=== PATIENT | female | born 1985 | race Caucasian/White ===

== ENCOUNTER 2016-08-09 04:41 | Inpatient (IN) | payer MEDICAID ==
[~2016-08-09] VITALS: Ht 160 cm; Wt 48.1 kg
[2016-08-09 07:12] LABS: ANION GAP 13 mmol/L (8-16); CALCIUM, TOTAL 9.1 mg/dL (8.8-10.5); CARBON DIOXIDE 24 mmol/L (22-29); CHLORIDE 100 mmol/L (98-107); GLOMERULAR FILTR. RATE CALC > 60 mL/min (>60); POTASSIUM 3.6 mmol/L (3.5-5.1); SODIUM SERUM 137 mmol/L (136-145); UREA NITROGEN, BLOOD 10 mg/dL (7-18)
[2016-08-09 07:18] LABS: ALANINE AMINOTRANSFERASE 41 U/L (12-78); ALBUMIN 3.8 g/dL (3.4-5.0); ASPARTATE AMINOTRANSFERASE 36 U/L (15-37); BILIRUBIN,TOTAL 0.5 mg/dL (0.1-1.0); TOTAL PROTEIN, SERUM 7.8 g/dL (6.4-8.2)
[2016-08-09 07:20] LABS: BASOPHILS % (AUTO) 0.8 % (0.0-2.0); EOSINOPHILS % (AUTO) 1.7 % (1.0-6.0); HEMATOCRIT 35.1 % (36-46); HEMOGLOBIN 11.3 g/dL (12.0-16.0); LYMPHOCYTES # (AUTO) 2.6 K/uL (1.0-4.8); LYMPHOCYTES % (AUTO) 25.3 % (22.0-44.0); MEAN CORPUSCULAR HEMOGLOBIN 28.8 pg (26.0-34.0); MEAN CORPUSCULAR HGB CONC 32.1 G/dL (31.0-37.0); MEAN CORPUSCULAR VOLUME 89 fL (80-100); MONOCYTES # (AUTO) 0.6 K/uL (0.1-1.0); MONOCYTES % (AUTO) 6.1 % (2.0-9.0); NEUTROPHILS # (AUTO) 6.8 K/uL (1.8-7.7); NEUTROPHILS % (AUTO) 66.1 % (40.0-70.0); PLATELET COUNT (AUTO) 443 K/uL (150-450); RED BLOOD CELL COUNT(AUTO) 3.92 MIL/uL (4.00-5.20); RED CELL DISTRIBUTION WIDTH 15.2 % (11.5-14.5); WHITE BLOOD COUNT (AUTO) 10.3 K/uL (4.5-11.0)
[2016-08-09] MEDS ORDERED: ZOLPIDEM TARTRATE 10 MG TABLET PO PRN (09:15)
[2016-08-09] MEDS ORDERED: HALOPERIDOL 5 MG TABLET PO PRN (09:15)
[2016-08-09 14:44] VITALS: BP 121/82
[2016-08-09] MEDS ORDERED: LOPERAMIDE HCL 2 MG CAPSULE PO PRN (14:45)
[2016-08-09] MEDS ORDERED: ALBUTEROL SULFATE HFA 90 MCG/PUFF 8 GM INHALER IH PRN (14:45)
[2016-08-09] MEDS ORDERED: MAGNESIUM HYDROXIDE SUSPENSION 30 ML UDCUP PO PRN (14:45)
[2016-08-09] MEDS ORDERED: BENZOCAINE/MENTHOL LOZENGE MM PRN (14:45)
[2016-08-09] MEDS ORDERED: MAG HYDROX/AL HYDROX/SIMETH ES 30 ML SUSPENSION UDCUP PO PRN (14:45)
[2016-08-09] MEDS ORDERED: PETROLATUM,WHITE 71 GM JELLY TP PRN (14:45)
[2016-08-09] MEDS ORDERED: BACITRACIN 28.4 GM OINTMENT TP PRN (14:45)
[2016-08-09] MEDS ORDERED: ACETAMINOPHEN 325 MG TABLET PO PRN (14:45)
[2016-08-09] MEDS ORDERED: CloNIDine HCL 0.1 MG TABLET PO PRN (14:45)
[2016-08-09] MEDS ORDERED: ONDANSETRON HCL 4 MG TABLET PO PRN (14:45)
[2016-08-09 16:07] VITALS: BP 110/68
[2016-08-10 00:10] VITALS: BP 123/78
[2016-08-10] MEDS: NICOTINE 21 MG/24 HOUR PATCH TD SCH ×2 (08:16→08:51)
[2016-08-10] MEDS: FLUoxetine HCL 20 MG CAPSULE PO SCH ×2 (12:09→12:12)
[2016-08-10 16:08] VITALS: BP 111/66
[2016-08-10 17:10] VITALS: BP 118/80
[2016-08-10] MEDS: IBUPROFEN 600 MG TABLET PO PRN (17:15)
[2016-08-10] MEDS: LORazepam 2 MG TABLET PO PRN (17:15)
[2016-08-11 05:50] VITALS: BP 110/89
[2016-08-11] MEDS: FERROUS SULFATE 325 MG EC TABLET PO SCH ×3 (06:38→17:00)
[2016-08-11 08:23] VITALS: BP 111/74
[2016-08-11] MEDS: NICOTINE 21 MG/24 HOUR PATCH TD SCH (09:00)
[2016-08-11] MEDS ORDERED: FLUoxetine HCL 20 MG CAPSULE PO ONE (09:30)
[2016-08-11] MEDS: LORazepam 2 MG TABLET PO PRN ×2 (14:06→18:24)
[2016-08-11] MEDS: IBUPROFEN 600 MG TABLET PO PRN ×2 (14:06→18:23)
[2016-08-11 14:09] VITALS: BP 131/96
[2016-08-11 16:00] VITALS: BP 123/75
[2016-08-11 18:14] VITALS: BP 133/88
[2016-08-11] MEDS: SERTRALINE HCL 100 MG TABLET PO SCH (20:34)
[2016-08-12 00:30] VITALS: BP 127/77
[2016-08-12] MEDS: FERROUS SULFATE 325 MG EC TABLET PO SCH ×2 (06:31→17:00)
[2016-08-12 06:50] VITALS: BP 115/71
[2016-08-12] MEDS: LORazepam 2 MG TABLET PO PRN (06:50)
[2016-08-12 08:29] VITALS: BP 118/83
[2016-08-12] MEDS: NICOTINE 21 MG/24 HOUR PATCH TD SCH (09:00)
[2016-08-12] MEDS: SERTRALINE HCL 100 MG TABLET PO SCH (09:18)
[2016-08-12] MEDS ORDERED: FERR-89 PO (16:18)
[2016-08-12] MEDS ORDERED: SERT100T12 PO (16:18)
[2016-08-12 16:20] VITALS: BP 116/73
== END 2016-08-12 19:35 | disposition home or self-care (01) | DRG 751 ==
LOC: EEVIPCON 04:42 → EMS 04:42 → B2S 10:35
PROVIDERS: ADMIT Psychiatry & Neurology Child & Adolescent Psychiatry; ATTEND Psychiatry & Neurology Child & Adolescent Psychiatry
DX: F33.2 Major depressive disorder, recurrent severe without psychotic features (principal); R45.851 Suicidal ideations; Z91.14 Patient's other noncompliance with medication regimen; Z72.0 Tobacco use; F12.90 Cannabis use, unspecified, uncomplicated; F15.10 Other stimulant abuse, uncomplicated; D64.9 Anemia, unspecified; R10.31 Right lower quadrant pain
CPT/HCPCS: 51701; 51702; 99285; 99406; G0480; Q0162

== ENCOUNTER 2016-10-01 12:55 | Emergency (ER) | payer MEDICAID ==
[~2016-10-01] VITALS: Ht 160 cm; Wt 52.3 kg
[~2016-10-01 12:55] MED LIST: FERR-89 PO; SERT100T12 PO
[2016-10-01 13:36] VITALS: BP 128/84
[2016-10-02] MEDS ORDERED: OLAN5Z PO ×2 (10:37→10:51)
[2016-10-02] MEDS ORDERED: NALT50 PO ×2 (10:37→10:51)
[2016-10-02] MEDS ORDERED: FLUO-191 PO ×2 (10:37→10:51)
[2016-10-02] MEDS ORDERED: DIVA500T52 PO ×2 (10:37→10:51)
[2016-10-02] MEDS ORDERED: SULF1TAB42 PO (10:51)
[2016-10-02] MEDS ORDERED: MUPI1OIN5 TP (10:51)
== END 2016-10-01 14:42 | disposition home or self-care (01) ==
LOC: EMS 12:56
DX: S51.801D Unspecified open wound of right forearm, subsequent encounter (principal); F25.9 Schizoaffective disorder, unspecified; F17.210 Nicotine dependence, cigarettes, uncomplicated; X58.XXXD Exposure to other specified factors, subsequent encounter
CPT/HCPCS: 99283

== ENCOUNTER 2017-12-30 18:21 | Emergency (ER) | payer SELFPAY ==
[~2017-12-30] VITALS: Ht 160 cm; Wt 50.0 kg
[~2017-12-30 18:21] MED LIST changes: +DIVA500T52 PO; -FERR-89 PO; +FLUO-191 PO; +MUPI1OIN5 TP; +NALT50TA6 PO; +OLAN5TAB40 PO; -SERT100T12 PO; +SULF1TAB42 PO
[2017-12-30] MEDS ORDERED: LORazepam 2 MG/ML VIAL IM ONE (20:15)
[2017-12-30] MEDS ORDERED: DiphenhydrAMINE HCL 50 MG/ML VIAL IM ONE (20:15)
[2017-12-30] MEDS ORDERED: HALOPERIDOL LACTATE 5 MG/ML VIAL IM ONE (20:15)
[2017-12-30 20:46] LABS: AMPHET/METH SCREEN,URINE POSITIVE (NEGATIVE); BARBITURATE SCREEN, URINE NEGATIVE (NEGATIVE); BENZODIAZEPINES SCREEN,URINE NEGATIVE (NEGATIVE); CANNABINOID SCREEN,URINE NEGATIVE (NEGATIVE); COCAINE SCREEN,URINE NEGATIVE (NEGATIVE); METHADONE SCREEN, URINE NEGATIVE (NEGATIVE); OPIATE SCREEN,URINE POSITIVE (NEGATIVE); PHENCYCLIDINE SCREEN,URINE NEGATIVE (NEGATIVE)
[2017-12-30 22:06] LABS: BASOPHILS % (AUTO) 1.7 % (0.0-2.0); EOSINOPHILS % (AUTO) 1.4 % (1.0-6.0); HEMATOCRIT 32.2 % (36-46); LYMPHOCYTES # (AUTO) 2.3 K/uL (1.0-4.8); LYMPHOCYTES % (AUTO) 23.8 % (22.0-44.0); MEAN CORPUSCULAR HEMOGLOBIN 29.5 pg (26.0-34.0); MEAN CORPUSCULAR HGB CONC 34.1 G/dL (31.0-37.0); MEAN CORPUSCULAR VOLUME 87 fL (80-100); MONOCYTES # (AUTO) 0.8 K/uL (0.1-1.0); MONOCYTES % (AUTO) 7.8 % (2.0-9.0); NEUTROPHILS # (AUTO) 6.3 K/uL (1.8-7.7); NEUTROPHILS % (AUTO) 65.3 % (40.0-70.0); PLATELET COUNT (AUTO) 446 K/uL (150-450); RED BLOOD CELL COUNT(AUTO) 3.72 MIL/uL (4.00-5.20); RED CELL DISTRIBUTION WIDTH 14.9 % (11.5-14.5)
[2017-12-30 22:22] LABS: ANION GAP 8 mmol/L (8-16); CALCIUM, TOTAL 8.7 mg/dL (8.8-10.5); CARBON DIOXIDE 28 mmol/L (22-29); CHLORIDE 100 mmol/L (98-107); CREATININE 0.71 mg/dL (0.60-1.30); GLOMERULAR FILTR. RATE CALC > 60 mL/min (>60); GLUCOSE,RANDOM 102 mg/dL (70-110); POTASSIUM 3.4 mmol/L (3.5-5.1); SODIUM SERUM 136 mmol/L (136-145); UREA NITROGEN, BLOOD 15 mg/dL (7-18)
[2017-12-30 22:29] LABS: ALANINE AMINOTRANSFERASE 22 U/L (12-78); ALBUMIN 3.3 g/dL (3.4-5.0); ALKALINE PHOSPHATASE 126 U/L (46-116); ASPARTATE AMINOTRANSFERASE 26 U/L (15-37); BILIRUBIN,TOTAL 0.2 mg/dL (0.1-1.0); TOTAL PROTEIN, SERUM 8.1 g/dL (6.4-8.2)
[2017-12-31 02:33] VITALS: BP 122/76
== END 2017-12-31 03:26 | disposition home or self-care (01) ==
LOC: EMS 18:51
DX: F15.10 Other stimulant abuse, uncomplicated (principal); F11.10 Opioid abuse, uncomplicated; F20.9 Schizophrenia, unspecified; F17.210 Nicotine dependence, cigarettes, uncomplicated; Z79.899 Other long term (current) drug therapy
CPT/HCPCS: 36415; 80053; 80307; 85025; 96372; 99285; G0480; J1200; J1630; J2060

== ENCOUNTER 2018-07-01 13:02 | Inpatient (IN) | payer MEDICAID ==
[~2018-07-01] VITALS: Ht 160 cm; Wt 68.3 kg
[~2018-07-01 13:02] MED LIST changes: +DIVA-78 PO; -DIVA500T52 PO; -FLUO-191 PO; -MUPI1OIN5 TP; -NALT50TA6 PO; -OLAN5TAB40 PO; +OLAN7.5T2 PO; -SULF1TAB42 PO
[2018-07-01] MEDS ORDERED: SERT100T12 PO (13:34)
[2018-07-01] MEDS ORDERED: ONDA4 PO (13:34)
[2018-07-01] MEDS ORDERED: PRAZ5 PO (13:34)
[2018-07-01 14:39] LABS: ANION GAP 11 mmol/L (8-16); CALCIUM, TOTAL 8.9 mg/dL (8.8-10.5); CARBON DIOXIDE 25 mmol/L (22-29); CHLORIDE 99 mmol/L (98-107); CREATININE 0.76 mg/dL (0.60-1.30); GLOMERULAR FILTR. RATE CALC > 60 mL/min (>60); GLUCOSE,RANDOM 112 mg/dL (70-110); POTASSIUM 4.4 mmol/L (3.5-5.1); SODIUM SERUM 135 mmol/L (136-145); UREA NITROGEN, BLOOD 13 mg/dL (7-18)
[2018-07-01 14:45] LABS: ALANINE AMINOTRANSFERASE 84 U/L (12-78); ALBUMIN 4.2 g/dL (3.4-5.0); ALKALINE PHOSPHATASE 96 U/L (46-116); ASPARTATE AMINOTRANSFERASE 39 U/L (15-37); BASOPHILS % (AUTO) 0.5 % (0.0-2.0); BILIRUBIN,TOTAL 0.3 mg/dL (0.1-1.0); HEMATOCRIT 36.8 % (36-46); HEMOGLOBIN 12.1 g/dL (12.0-16.0); LYMPHOCYTES # (AUTO) 2.9 K/uL (1.0-4.8); LYMPHOCYTES % (AUTO) 48.4 % (22.0-44.0); MEAN CORPUSCULAR HEMOGLOBIN 29.7 pg (26.0-34.0); MEAN CORPUSCULAR HGB CONC 32.8 G/dL (31.0-37.0); MEAN CORPUSCULAR VOLUME 90 fL (80-100); MONOCYTES # (AUTO) 0.6 K/uL (0.1-1.0); MONOCYTES % (AUTO) 10.6 % (2.0-9.0); NEUTROPHILS # (AUTO) 2.2 K/uL (1.8-7.7); NEUTROPHILS % (AUTO) 36.5 % (40.0-70.0); PLATELET COUNT (AUTO) 418 K/uL (150-450); RED BLOOD CELL COUNT(AUTO) 4.07 MIL/uL (4.00-5.20); RED CELL DISTRIBUTION WIDTH 13.1 % (11.5-14.5); TOTAL PROTEIN, SERUM 8.3 g/dL (6.4-8.2)
[2018-07-01] MEDS ORDERED: HALOPERIDOL 5 MG TABLET PO PRN (14:45)
[2018-07-01 16:05] LABS: AMPHET/METH SCREEN,URINE POSITIVE (NEGATIVE); BARBITURATE SCREEN, URINE NEGATIVE (NEGATIVE); BENZODIAZEPINES SCREEN,URINE NEGATIVE (NEGATIVE); CANNABINOID SCREEN,URINE NEGATIVE (NEGATIVE); COCAINE SCREEN,URINE NEGATIVE (NEGATIVE); METHADONE SCREEN, URINE NEGATIVE (NEGATIVE); OPIATE SCREEN,URINE POSITIVE (NEGATIVE)
[2018-07-01 16:06] LABS: PHENCYCLIDINE SCREEN,URINE NEGATIVE (NEGATIVE)
[2018-07-01 18:12] VITALS: BP 112/77
[2018-07-01] MEDS: LORazepam 2 MG TABLET PO PRN (19:25)
[2018-07-02 00:14] VITALS: BP 91/60
[2018-07-02] MEDS ORDERED: CloNIDine HCL 0.1 MG TABLET PO PRN (06:00)
[2018-07-02] MEDS ORDERED: BENZOCAINE/MENTHOL LOZENGE MM PRN (06:00)
[2018-07-02] MEDS ORDERED: LOPERAMIDE HCL 2 MG CAPSULE PO PRN (06:00)
[2018-07-02] MEDS ORDERED: IBUPROFEN 600 MG TABLET PO PRN (06:00)
[2018-07-02] MEDS ORDERED: ONDANSETRON HCL 4 MG TABLET PO PRN (06:00)
[2018-07-02] MEDS ORDERED: MAG HYDROX/AL HYDROX/SIMETH ES 30 ML SUSPENSION UDCUP PO PRN (06:00)
[2018-07-02] MEDS ORDERED: PETROLATUM,WHITE 28 GM JELLY TP PRN (06:00)
[2018-07-02] MEDS ORDERED: OMEPRAZOLE 20 MG CAPSULE PO PRN (06:00)
[2018-07-02] MEDS ORDERED: DOCUSATE SODIUM 100 MG CAPSULE PO PRN (06:00)
[2018-07-02] MEDS ORDERED: ALBUTEROL SULFATE HFA 90 MCG/PUFF 8 GM INHALER IH PRN (06:00)
[2018-07-02] MEDS ORDERED: BACITRACIN 28.4 GM OINTMENT TP PRN (06:00)
[2018-07-02] MEDS ORDERED: ACETAMINOPHEN 325 MG TABLET PO PRN (06:00)
[2018-07-02] MEDS ORDERED: MAGNESIUM HYDROXIDE SUSPENSION 30 ML UDCUP PO PRN (06:00)
[2018-07-02 08:01] VITALS: BP 118/71
[2018-07-02 16:27] VITALS: BP 103/60
[2018-07-02] MEDS: LORazepam 2 MG TABLET PO PRN (18:52)
[2018-07-02] MEDS: DIVALPROEX SODIUM 500 MG ER TABLET PO SCH (20:15)
[2018-07-02] MEDS: ZOLPIDEM TARTRATE 10 MG TABLET PO PRN (20:15)
[2018-07-02] MEDS: OLANZapine 5 MG RAPDIS TABLET PO SCH (21:00)
[2018-07-03 02:13] VITALS: BP 104/71
[2018-07-03 08:14] VITALS: BP 109/85
[2018-07-03] MEDS: LORazepam 2 MG TABLET PO PRN ×2 (09:46→18:15)
[2018-07-03 16:51] VITALS: BP 105/67
[2018-07-03 18:00] VITALS: BP 110/71
[2018-07-03] MEDS: DIVALPROEX SODIUM 500 MG ER TABLET PO SCH (20:26)
[2018-07-03] MEDS: OLANZapine 5 MG RAPDIS TABLET PO SCH (20:27)
[2018-07-03] MEDS: ZOLPIDEM TARTRATE 10 MG TABLET PO PRN (20:52)
[2018-07-04 00:05] VITALS: BP 103/60
[2018-07-04 08:16] VITALS: BP 118/68
[2018-07-04 08:47] LABS: ANION GAP 10 mmol/L (8-16); CALCIUM, TOTAL 9.2 mg/dL (8.8-10.5); CARBON DIOXIDE 25 mmol/L (22-29); CHLORIDE 106 mmol/L (98-107); CHOL/HDL RATIO 5.7 (3.9-5.7); CHOLESTEROL 153 mg/dL (131-200); CREATININE 0.56 mg/dL (0.60-1.30); GLOMERULAR FILTR. RATE CALC > 60 mL/min (>60); GLUCOSE,RANDOM 84 mg/dL (70-110); HDL CHOLESTEROL 27 mg/dL (40-60); LDL CHOL (CALC.) 100 mg/dL (0-130); POTASSIUM 3.8 mmol/L (3.5-5.1); SODIUM SERUM 141 mmol/L (136-145); TRIGLYCERIDES 129 mg/dL (15-150); UREA NITROGEN, BLOOD 12 mg/dL (7-18)
[2018-07-04 16:24] VITALS: BP 111/66
[2018-07-04] MEDS: LORazepam 2 MG TABLET PO PRN (17:12)
[2018-07-04] MEDS: ZOLPIDEM TARTRATE 10 MG TABLET PO PRN (20:28)
[2018-07-04] MEDS: OLANZapine 5 MG RAPDIS TABLET PO SCH (20:28)
[2018-07-04] MEDS: DIVALPROEX SODIUM 500 MG ER TABLET PO SCH (20:28)
[2018-07-05 03:04] VITALS: BP 106/70
[2018-07-05 08:21] VITALS: BP 106/61
[2018-07-05] MEDS ORDERED: OLAN5TAB40 PO (13:10)
[2018-07-05] MEDS ORDERED: DIVA500T52 PO (13:10)
[2018-07-05] MEDS ORDERED: DIVA-78 PO (13:12)
== END 2018-07-05 14:50 | disposition home or self-care (01) | DRG 750 ==
LOC: EMS 13:03 → B2S 16:17
PROVIDERS: ADMIT Psychiatry & Neurology Psychiatry; ATTEND Psychiatry & Neurology Psychiatry
DX: F25.9 Schizoaffective disorder, unspecified (principal); E87.1 Hypo-osmolality and hyponatremia; F31.9 Bipolar disorder, unspecified; G47.00 Insomnia, unspecified; F12.10 Cannabis abuse, uncomplicated; F15.10 Other stimulant abuse, uncomplicated; F17.200 Nicotine dependence, unspecified, uncomplicated; Z71.6 Tobacco abuse counseling; Z71.51 Drug abuse counseling and surveillance of drug abuser; Z56.0 Unemployment, unspecified
CPT/HCPCS: 80074; 87081; G0480

== ENCOUNTER 2019-05-25 07:04 | Day surgery (SDC) | payer MEDICAID ==
[~2019-05-25] VITALS: Ht 160 cm; Wt 59.1 kg
[~2019-05-25 07:04] MED LIST changes: +OLAN5TAB40 PO; -OLAN7.5T2 PO; +SODIUM CHLORIDE 0.9% 1,000 ML ONE
[2019-05-25] MEDS ORDERED: OMEP20 PO (07:24)
[2019-05-25] MEDS ORDERED: PROM6.2521 PO (07:24)
[2019-05-25] MEDS ORDERED: BUPR100 PO (07:24)
[2019-05-25] MEDS ORDERED: FAMO20 PO (07:24)
[2019-05-25] MEDS ORDERED: IBUP-2070 PO (07:24)
[2019-05-25] MEDS ORDERED: BUPR1FIL3 SL (07:24)
[2019-05-25] MEDS ORDERED: GABA-1181 PO (07:24)
[2019-05-25] MEDS ORDERED: SODIUM CHLORIDE 0.9% 1,000 ML IV ONE (07:30)
[2019-05-25] MEDS ORDERED: FentaNYL CITRATE-PF 100 MCG/2 ML VIAL ONE (09:32)
[2019-05-25] MEDS ORDERED: MIDAZOLAM HCL 5 MG/ML VIAL ONE ×2 (09:32→11:27)
== END 2019-05-25 11:50 | disposition home or self-care (01) ==
LOC: SURGERY 07:04
PROVIDERS: ATTEND Student in an Organized Health Care Education/Training Program
DX: K21.9 Gastro-esophageal reflux disease without esophagitis (principal); K44.9 Diaphragmatic hernia without obstruction or gangrene; K22.8 Other specified diseases of esophagus; F12.90 Cannabis use, unspecified, uncomplicated; F14.90 Cocaine use, unspecified, uncomplicated; Z88.2 Allergy status to sulfonamides; Z79.899 Other long term (current) drug therapy; Z72.89 Other problems related to lifestyle
CPT/HCPCS: 43239; 84703; 88305; 88312; 88313; 99152; C1769; J2250; J3010; J7030

== ENCOUNTER 2020-06-28 00:07 | Emergency (ER) | payer MEDICAID ==
[~2020-06-28] VITALS: Ht 160 cm; Wt 59.1 kg
[~2020-06-28 00:07] MED LIST changes: +BUPR-121 PO; +BUPR1FIL3 SL; +DIVA-112 PO; -DIVA-78 PO; +FAMO20 PO; +GABA-1181 PO; +IBUP-2070 PO; +OMEP20 PO; +PROM5L PO; -SODIUM CHLORIDE 0.9% 1,000 ML ONE
[2020-06-28] MEDS ORDERED: LORazepam 1 MG TABLET PO ONE (01:45)
[2020-06-28 02:37] VITALS: BP 110/78
== END 2020-06-28 02:45 | disposition home or self-care (01) ==
LOC: EMS 00:09
DX: F41.9 Anxiety disorder, unspecified (principal); F32.9 Major depressive disorder, single episode, unspecified; F20.9 Schizophrenia, unspecified; F17.210 Nicotine dependence, cigarettes, uncomplicated; F12.90 Cannabis use, unspecified, uncomplicated; F11.90 Opioid use, unspecified, uncomplicated; Z88.1 Allergy status to other antibiotic agents
CPT/HCPCS: 99283

== ENCOUNTER 2021-06-18 06:49 | Day surgery (SDC) | payer MEDICAID ==
[~2021-06-18] VITALS: Ht 160 cm; Wt 54.5 kg
[~2021-06-18 06:49] MED LIST changes: -BUPR-121 PO; +BUPR-345 PO; -OLAN5TAB40 PO; +OLAN5TAB94 PO; +SODIUM CHLORIDE 0.9% 1,000 ML IV ONE
[2021-06-18] MEDS ORDERED: ALBUTEROL SULFATE 2.5 MG/0.5 ML NEB SOLUTION NEB ONE (06:50)
[2021-06-18] MEDS ORDERED: LIDOCAINE 2% 30 ML JELLY TP ONE (06:50)
[2021-06-18] MEDS ORDERED: BENZOCAINE 20% 50 MCG/SPRAY 57 GM TP ONE (06:50)
[2021-06-18] MEDS ORDERED: LIDOCAINE 4% 50 ML SOLUTION TP ONE (06:50)
[2021-06-18 07:18] LABS: COVID AG,FIA SOURCE NASAL SWAB
[2021-06-18] MEDS ORDERED: FentaNYL CITRATE PF 100 MCG/2 ML VIAL ONE (07:40)
[2021-06-18] MEDS ORDERED: MIDAZOLAM HCL 5 MG/ML VIAL ONE (07:41)
[2021-06-18] MEDS ORDERED: METH5SOL3 PO (08:18)
[2021-06-18] MEDS ORDERED: BUPR-50 PO (08:18)
[2021-06-18] MEDS ORDERED: MethylPREDNISolone SOD SUCC 125 MG/2 ML VIAL IVP ONE (09:45)
== END 2021-06-18 12:30 | disposition home or self-care (01) ==
LOC: SURGERY 06:49
PROVIDERS: ATTEND Internal Medicine Critical Care Medicine
DX: R05.3 Chronic cough (principal); Z98.890 Other specified postprocedural states; Z88.2 Allergy status to sulfonamides; R91.8 Other nonspecific abnormal finding of lung field
CPT/HCPCS: 31623; 31624; 71045; 84703; 87015; 87070; 87101; 87206; 87220; 87426; 88112; 88184; 88185; 88312; C9803; J2250; J3010; J7613; Z7610